=== PATIENT | male | born 1950 | race Caucasian/White ===

== ENCOUNTER 2019-10-25 14:30 | Outpatient (RCR) | payer MEDICARE, OTHER, SELFPAY ==
--- NOTE | 2019-09-14 16:00 | PT.OIE ---
Current Diagnoses Other specified urinary incontinence (09/14/19) Personal history of malignant neoplasm of prostate (09/14/19) Visit Care Team Role Provider Type Gamaliel Trevino Attending Provider Non-Staff Primary Care Provider Specialty: Family Practice Address: [address] [place] [address], [address], [place], [place], [id number] Email: Physical Therapy Initial Evaluation PT-OP-A Visit Information Start: 09/14/19 07:24 Freq: Status: Active Protocol: Document 09/14/19 09:45 AMB (Rec: 09/15/19 12:58 AMB [email or web address]) Out-Patient Physical Therapy Visit Information Visit Information Visit Type Initial Evaluation Visit Start Time 09:45 Visit Stop Time 10:30 Total Visit Minutes 45 Visit Number 1 PT-OP-B Current Condition Start: 09/14/19 07:24 Freq: Status: Active Protocol: Document 09/14/19 09:45 AMB (Rec: 09/16/19 07:32 AMB [email or web address]) Current Condition History of Current Condition Onset Date 1 year ago Current Complaints incontinence s/p prostate surgery History of Current Condition Abhi had prostate surgery a year ago in [place]. Since that time he feels that his continence improved slightly but then plateaued. He has the most issue with standing. He feels like the urine just streams out. He can be continent when lying down, but in standing even if he is doing a Kegel, he goes through 6-7 diapers a day. He did not have any radiation or chemotherapy. Treatment Goals Patient/Caregiver Goals Reduce incontinence, so no longer using continence pads Prior Functional Status Baseline Function- ADL's Independent Baseline Function- Mobility Independent Current Functional Impairments (Reported) Functional Limitations- ADL's Wears 6-7 pads per day Personal Factors Other Personal Factors That May Effect none Therapy/Recovery PT-OP-C Subjective Start: 09/14/19 07:24 Freq: Status: Active Protocol: Document 09/14/19 09:45 AMB (Rec: 09/19/19 11:16 AMB [email or web address]) Patient Questionnaires Pelvic Pain and Urgency/Frequency Patient Symptom Scale Pelvic Pain Score 14 OP-PT Pain Assessment Comments Pain Comments Pt denies pain PT-OP-I Pelvic Floor Start: 09/14/19 07:24 Freq: Status: Active Protocol: Document 09/14/19 09:45 AMB (Rec: 09/19/19 11:16 AMB [email or web address]) Pelvic Floor Assessment Urine Pelvic Floor Surgery Yes: robotic prostate surgery, incision at umbilicus Urinary Symptoms Urge Sensation Leakage Size Large Leakage Cause Exercise Other Leakage Causes standing, walking Leaks Per Day constant Voiding Frequency every 30 minutes to hour Nocturia 3-4 Pads Used In 24 Hours 7 Urine Pad Type Depends Bowel Bowel Surgery No Contraction Ability Voluntary Contraction Weak Voluntary Relaxation Moderate Manual Muscle Testing Left 3 Manual Muscle Testing Right 3 Manual Muscle Testing Anterior 3 Manual Muscle Testing Posterior 3 Muscle Endurance (Seconds) 5 Number of Quick Contractions In 10 5 Seconds Comments Pelvic Floor Comments Manual muscle testing rectally . Good squeeze but poor lift. PT-OP-T Assessment and Plan Start: 09/14/19 07:24 Freq: Status: Active Protocol: Document 09/14/19 09:45 AMB (Rec: 09/19/19 11:16 AMB [email or web address]) Physical Therapy Assessment Rehab Potential Rehabilitation Potential Fair Evaluation Complexity Number of Personal Factors/Comorbidities 0 Number of Body Systems Impaired 1-2 Clinical Presentation at Evaluation Stable Impairments Impairments Functional Activities,Strength Goals Two Impairment pelvic floor strength Short Term Goal (STG) Abhi will improve his pelvic floor strength to 4/5. STG Duration 4 weeks Correction Goal (LTG) Abhi will stand and perform a Kegel for 10 seconds. LTG Duration 8 weeks One Impairment Continence Short Term Goal (STG) Abhi will stand for 3 minutes without leaking. STG Duration 4 weeks Correction Goal (LTG) Abhi will move from sit to stand without leaking. LTG Duration 8 weeks Assessment Summary Assessment Abhi attends PT 1 year s/p prostate surgery with a reported plateau in continence . He feels there is constant leakage when standing or in an upright position, not just when he exerts himself. This is challenging, in that he does have more than just stress urinary incontinence, and he is also experiencing urinary frequency and urgency. He denies any pain, and was able to perform a Kegel during testing. He will benefit from PT to further instruct him in behavioral modification as well as pelvic floor strengthening, to help him reduce his incontinence. Physical Therapy Plan Frequency and Duration Frequency of Treatment 1x/Week Duration of Treatment 8 weeks Plan of Care Start Date 09/14/19 Plan of Care End Date 11/09/19 Therapeutic Interventions Therapeutic Interventions Home Exercise Program,Manual Therapy,Neuromuscular Re- education,Self-Care/Home Management,Therapeutic Activities,Therapeutic Exercises Modalities Biofeedback,Electric Stimulation Next Visit Focus/Plan Next Note Type Treatment Note Next Visit Plan begin with sEMG, behavioral training for urgency/ frequency reduction
--- NOTE | 2019-09-20 14:57 | PT.OTN ---
Current Diagnoses Other specified urinary incontinence (09/20/19) Personal history of malignant neoplasm of prostate (09/20/19) Physical Therapy Treatment Note PT-OP-A Visit Information Start: 09/14/19 07:24 Freq: Status: Active Protocol: Document 09/20/19 13:45 AMB (Rec: 09/20/19 14:57 AMB [email or web address]) Out-Patient Physical Therapy Visit Information Visit Information Visit Type Treatment Note Visit Start Time 13:45 Visit Stop Time 14:30 Total Visit Minutes 45 Visit Number 2 PT-OP-B Current Condition Start: 09/14/19 07:24 Freq: Status: Active Protocol: Document 09/14/19 09:45 AMB (Rec: 09/16/19 07:32 AMB [email or web address]) Current Condition History of Current Condition Onset Date 1 year ago Current Complaints incontinence s/p prostate surgery History of Current Condition Abhi had prostate surgery a year ago in [place]. Since that time he feels that his continence improved slightly but then platueaed. He has the most issue with standing. He feels like the urine just streams out. He can be continent when lying down, but in standing even if he is doing a Kegel, he goes through 6-7 diapers a day. He did not have any radiation or chemotherapy. Treatment Goals Patient/Caregiver Goals Reduce incontinence, so no longer using continence pads Prior Functional Status Baseline Function- ADL's Independent Baseline Function- Mobility Independent Current Functional Impairments (Reported) Functional Limitations- ADL's Wears 6-7 pads per day Personal Factors Other Personal Factors That May Effect none Therapy/Recovery PT-OP-C Subjective Start: 09/14/19 07:24 Freq: Status: Active Protocol: Document 09/20/19 13:45 AMB (Rec: 09/20/19 14:57 AMB [email or web address]) OP-PT Subjective Patient Comments Patient Comments Abhi is feeling about the same. PT-OP-I Pelvic Floor Start: 09/14/19 07:24 Freq: Status: Active Protocol: Document 09/14/19 09:45 AMB (Rec: 09/19/19 11:16 AMB [email or web address]) Pelvic Floor Assessment Urine Pelvic Floor Surgery Yes: robotic prostate surgery, incision at umbilicus Urinary Symptoms Urge Sensation Leakage Size Large Leakage Cause Exercise Other Leakage Causes standing, walking Leaks Per Day constant Voiding Frequency every 30 minutes to hour Nocturia 3-4 Pads Used In 24 Hours 7 Urine Pad Type Depends Bowel Bowel Surgery No Contraction Ability Voluntary Contraction Weak Voluntary Relaxation Moderate Manual Muscle Testing Left 3 Manual Muscle Testing Right 3 Manual Muscle Testing Anterior 3 Manual Muscle Testing Posterior 3 Muscle Endurance (Seconds) 5 Number of Quick Contractions In 10 5 Seconds Comments Pelvic Floor Comments Manual muscle testing rectally . Good squeeze but poor lift. PT-OP-Q Treatments Start: 09/14/19 07:24 Freq: Status: Active Protocol: Document 09/20/19 13:45 AMB (Rec: 09/20/19 14:57 AMB [email or web address]) Therapeutic Exercises Sitting Exercises 1 Sitting Exercise Name roll in roll out Resistance #3 band Comments 10 ea, 5 hold Standing Exercises 2 Standing Exercise Name standing 5 holds, varied foot position 1 Standing Exercise Name mini squat/ lunge Comments with pelvic floor contraction Neuro Re-Education Treatment Other Activities 1 Details sEMG Comments quick flicks and long holds in sidelying PT-OP-T Assessment and Plan Start: 09/14/19 07:24 Freq: Status: Active Protocol: Document 09/20/19 13:45 AMB (Rec: 09/20/19 14:57 AMB [email or web address]) Physical Therapy Assessment Assessment Summary Assessment sEMG maximum of 42, possibly using gluteals, but good awareness of not using abs. Did well with standing pelvic floor progression. Physical Therapy Plan Next Visit Focus/Plan Next Note Type Treatment Note Next Visit Plan begin with sEMG, behavioral training for urgency/ frequency reduction
--- NOTE | 2019-09-28 15:56 | PT.OTN ---
Current Diagnoses Other specified urinary incontinence (09/28/19) Personal history of malignant neoplasm of prostate (09/28/19) Physical Therapy Treatment Note PT-OP-A Visit Information Start: 09/14/19 07:24 Freq: Status: Active Protocol: Document 09/28/19 14:30 AMB (Rec: 09/28/19 15:56 AMB [email or web address]) Out-Patient Physical Therapy Visit Information Visit Information Visit Type Treatment Note Visit Start Time 14:30 Visit Stop Time 15:15 Total Visit Minutes 45 Visit Number 3 PT-OP-B Current Condition Start: 09/14/19 07:24 Freq: Status: Active Protocol: Document 09/14/19 09:45 AMB (Rec: 09/16/19 07:32 AMB [email or web address]) Current Condition History of Current Condition Onset Date 1 year ago Current Complaints incontinence s/p prostate surgery History of Current Condition Abhi had prostate surgery a year ago in [place]. Since that time he feels that his continence improved slightly but then platueaed. He has the most issue with standing. He feels like the urine just streams out. He can be continent when lying down, but in standing even if he is doing a Kegel, he goes through 6-7 diapers a day. He did not have any radiation or chemotherapy. Treatment Goals Patient/Caregiver Goals Reduce incontinence, so no longer using continence pads Prior Functional Status Baseline Function- ADL's Independent Baseline Function- Mobility Independent Current Functional Impairments (Reported) Functional Limitations- ADL's Wears 6-7 pads per day Personal Factors Other Personal Factors That May Effect none Therapy/Recovery PT-OP-C Subjective Start: 09/14/19 07:24 Freq: Status: Active Protocol: Document 09/28/19 14:30 AMB (Rec: 09/28/19 15:56 AMB [email or web address]) OP-PT Subjective Patient Comments Patient Comments Abhi did his exercises every day except for one day this week. PT-OP-I Pelvic Floor Start: 09/14/19 07:24 Freq: Status: Active Protocol: Document 09/14/19 09:45 AMB (Rec: 09/19/19 11:16 AMB [email or web address]) Pelvic Floor Assessment Urine Pelvic Floor Surgery Yes: robotic prostate surgery, incision at umbilicus Urinary Symptoms Urge Sensation Leakage Size Large Leakage Cause Exercise Other Leakage Causes standing, walking Leaks Per Day constant Voiding Frequency every 30 minutes to hour Nocturia 3-4 Pads Used In 24 Hours 7 Urine Pad Type Depends Bowel Bowel Surgery No Contraction Ability Voluntary Contraction Weak Voluntary Relaxation Moderate Manual Muscle Testing Left 3 Manual Muscle Testing Right 3 Manual Muscle Testing Anterior 3 Manual Muscle Testing Posterior 3 Muscle Endurance (Seconds) 5 Number of Quick Contractions In 10 5 Seconds Comments Pelvic Floor Comments Manual muscle testing rectally . Good squeeze but poor lift. PT-OP-Q Treatments Start: 09/14/19 07:24 Freq: Status: Active Protocol: Document 09/28/19 14:30 AMB (Rec: 09/28/19 15:56 AMB [email or web address]) Therapeutic Exercises Sitting Exercises 1 Sitting Exercise Name roll in roll out Resistance #3 band Comments 10 ea, 5 hold Standing Exercises 2 Standing Exercise Name standing 10 holds, varied foot position Comments eccentric lowering 1 Standing Exercise Name mini squat/ lunge Comments with pelvic floor contraction PT-OP-T Assessment and Plan Start: 09/14/19 07:24 Freq: Status: Active Protocol: Document 09/28/19 14:30 AMB (Rec: 09/28/19 15:56 AMB [email or web address]) Physical Therapy Assessment Assessment Summary Assessment Pelvic floor contraction with squat is still difficult but did feel leak when relaxing. Encouraged in eccentric lowering with relaxation in standing. Physical Therapy Plan Next Visit Focus/Plan Next Note Type Treatment Note Next Visit Plan follow up on ejaculating urine
--- NOTE | 2019-10-08 12:30 | PT.OTN ---
Current Diagnoses Other specified urinary incontinence (10/08/19) Personal history of malignant neoplasm of prostate (10/08/19) Physical Therapy Treatment Note PT-OP-A Visit Information Start: 09/14/19 07:24 Freq: Status: Active Protocol: Document 10/08/19 10:30 AMB (Rec: 10/08/19 12:01 AMB [email or web address]) Out-Patient Physical Therapy Visit Information Visit Information Visit Type Treatment Note Visit Start Time 10:30 Visit Stop Time 11:15 Total Visit Minutes 45 Visit Number 4 PT-OP-B Current Condition Start: 09/14/19 07:24 Freq: Status: Active Protocol: Document 09/14/19 09:45 AMB (Rec: 09/16/19 07:32 AMB [email or web address]) Current Condition History of Current Condition Onset Date 1 year ago Current Complaints incontinence s/p prostate surgery History of Current Condition Abhi had prostate surgery a year ago in [place]. Since that time he feels that his continence improved slightly but then platueaed. He has the most issue with standing. He feels like the urine just streams out. He can be continent when lying down, but in standing even if he is doing a Kegel, he goes through 6-7 diapers a day. He did not have any radiation or chemotherapy. Treatment Goals Patient/Caregiver Goals Reduce incontinence, so no longer using continence pads Prior Functional Status Baseline Function- ADL's Independent Baseline Function- Mobility Independent Current Functional Impairments (Reported) Functional Limitations- ADL's Wears 6-7 pads per day Personal Factors Other Personal Factors That May Effect none Therapy/Recovery PT-OP-C Subjective Start: 09/14/19 07:24 Freq: Status: Active Protocol: Document 10/08/19 10:30 AMB (Rec: 10/08/19 12:01 AMB [email or web address]) OP-PT Subjective Patient Comments Patient Comments Feels that sometimes there is more urine that comes out with orgasm than a condom would hold PT-OP-I Pelvic Floor Start: 09/14/19 07:24 Freq: Status: Active Protocol: Document 09/14/19 09:45 AMB (Rec: 09/19/19 11:16 AMB [email or web address]) Pelvic Floor Assessment Urine Pelvic Floor Surgery Yes: robotic prostate surgery, incision at umbilicus Urinary Symptoms Urge Sensation Leakage Size Large Leakage Cause Exercise Other Leakage Causes standing, walking Leaks Per Day constant Voiding Frequency every 30 minutes to hour Nocturia 3-4 Pads Used In 24 Hours 7 Urine Pad Type Depends Bowel Bowel Surgery No Contraction Ability Voluntary Contraction Weak Voluntary Relaxation Moderate Manual Muscle Testing Left 3 Manual Muscle Testing Right 3 Manual Muscle Testing Anterior 3 Manual Muscle Testing Posterior 3 Muscle Endurance (Seconds) 5 Number of Quick Contractions In 10 5 Seconds Comments Pelvic Floor Comments Manual muscle testing rectally . Good squeeze but poor lift. PT-OP-Q Treatments Start: 09/14/19 07:24 Freq: Status: Active Protocol: Document 10/08/19 10:30 AMB (Rec: 10/08/19 12:30 AMB [email or web address]) Therapeutic Exercises Sitting Exercises 2 Sitting Exercise Name quick flicks to reduce urgency Comments bladder training, bladder diary ariel, over time increasing time between void 1 Sitting Exercise Name roll in roll out Resistance #3 band Comments 10 ea, 5 hold Standing Exercises 1 Standing Exercise Name mini squat/ lunge Comments with pelvic floor contraction PT-OP-T Assessment and Plan Start: 09/14/19 07:24 Freq: Status: Active Protocol: Document 10/08/19 10:30 AMB (Rec: 10/08/19 12:01 AMB [email or web address]) Physical Therapy Assessment Assessment Summary Assessment Abhi worked a lot today and frequency and discussion of urge suppression. This will be difficult as he has gotten up to go to the bathroom multiple times per night for about 15 years now. Physical Therapy Plan Next Visit Focus/Plan Next Note Type Treatment Note Next Visit Plan Follow up on bladder diary, decreasing both night time and daytime frequency. Consider NMES.
--- NOTE | 2019-10-11 15:47 | PT.OTN ---
Current Diagnoses Other specified urinary incontinence (10/11/19) Personal history of malignant neoplasm of prostate (10/11/19) Physical Therapy Treatment Note PT-OP-A Visit Information Start: 09/14/19 07:24 Freq: Status: Active Protocol: Document 10/11/19 14:30 AMB (Rec: 10/11/19 15:46 AMB [email or web address]) Out-Patient Physical Therapy Visit Information Visit Information Visit Type Treatment Note Visit Start Time 14:30 Visit Stop Time 15:00 Total Visit Minutes 45 Visit Number 5 PT-OP-B Current Condition Start: 09/14/19 07:24 Freq: Status: Active Protocol: Document 09/14/19 09:45 AMB (Rec: 09/16/19 07:32 AMB [email or web address]) Current Condition History of Current Condition Onset Date 1 year ago Current Complaints incontinence s/p prostate surgery History of Current Condition Abhi had prostate surgery a year ago in [place]. Since that time he feels that his continence improved slightly but then platueaed. He has the most issue with standing. He feels like the urine just streams out. He can be continent when lying down, but in standing even if he is doing a Kegel, he goes through 6-7 diapers a day. He did not have any radiation or chemotherapy. Treatment Goals Patient/Caregiver Goals Reduce incontinence, so no longer using continence pads Prior Functional Status Baseline Function- ADL's Independent Baseline Function- Mobility Independent Current Functional Impairments (Reported) Functional Limitations- ADL's Wears 6-7 pads per day Personal Factors Other Personal Factors That May Effect none Therapy/Recovery PT-OP-C Subjective Start: 09/14/19 07:24 Freq: Status: Active Protocol: Document 10/11/19 14:30 AMB (Rec: 10/11/19 15:46 AMB [email or web address]) OP-PT Subjective Patient Comments Patient Comments Pt has been able to lengthen the amount of time between voids at night by an hour but it has been difficult. PT-OP-I Pelvic Floor Start: 09/14/19 07:24 Freq: Status: Active Protocol: Document 09/14/19 09:45 AMB (Rec: 09/19/19 11:16 AMB [email or web address]) Pelvic Floor Assessment Urine Pelvic Floor Surgery Yes: robotic prostate surgery, incision at umbilicus Urinary Symptoms Urge Sensation Leakage Size Large Leakage Cause Exercise Other Leakage Causes standing, walking Leaks Per Day constant Voiding Frequency every 30 minutes to hour Nocturia 3-4 Pads Used In 24 Hours 7 Urine Pad Type Depends Bowel Bowel Surgery No Contraction Ability Voluntary Contraction Weak Voluntary Relaxation Moderate Manual Muscle Testing Left 3 Manual Muscle Testing Right 3 Manual Muscle Testing Anterior 3 Manual Muscle Testing Posterior 3 Muscle Endurance (Seconds) 5 Number of Quick Contractions In 10 5 Seconds Comments Pelvic Floor Comments Manual muscle testing rectally . Good squeeze but poor lift. PT-OP-Q Treatments Start: 09/14/19 07:24 Freq: Status: Active Protocol: Document 10/11/19 14:30 AMB (Rec: 10/11/19 15:46 AMB [email or web address]) Neuro Re-Education Treatment Other Activities 2 Details long holds with NMES 1 Details sEMG Comments quick flicks and long holds in sidelying- max 45 when not compensating PT-OP-T Assessment and Plan Start: 09/14/19 07:24 Freq: Status: Active Protocol: Document 10/11/19 14:30 AMB (Rec: 10/11/19 15:46 AMB [email or web address]) Physical Therapy Assessment Assessment Summary Assessment NMES may or may not have been helpful. Abhi continued to need verbal cues to avoid over using gluteals and abdominals with the sEMG. Physical Therapy Plan Next Visit Focus/Plan Next Note Type Treatment Note Next Visit Plan Follow up on bladder diary, decreasing both night time and daytime frequency.
--- NOTE | 2019-10-25 16:00 | PT.OTN ---
Current Diagnoses Other specified urinary incontinence (10/25/19) Personal history of malignant neoplasm of prostate (10/25/19) Physical Therapy Treatment Note PT-OP-A Visit Information Start: 09/14/19 07:24 Freq: Status: Active Protocol: Document 10/25/19 14:30 AMB (Rec: 10/26/19 10:55 AMB [email or web address]) Out-Patient Physical Therapy Visit Information Visit Information Visit Type Treatment Note Visit Start Time 14:30 Visit Stop Time 15:00 Total Visit Minutes 30 Visit Number 6 PT-OP-B Current Condition Start: 09/14/19 07:24 Freq: Status: Active Protocol: Document 09/14/19 09:45 AMB (Rec: 09/16/19 07:32 AMB [email or web address]) Current Condition History of Current Condition Onset Date 1 year ago Current Complaints incontinence s/p prostate surgery History of Current Condition Abhi had prostate surgery a year ago in [place]. Since that time he feels that his continence improved slightly but then platueaed. He has the most issue with standing. He feels like the urine just streams out. He can be continent when lying down, but in standing even if he is doing a Kegel, he goes through 6-7 diapers a day. He did not have any radiation or chemotherapy. Treatment Goals Patient/Caregiver Goals Reduce incontinence, so no longer using continence pads Prior Functional Status Baseline Function- ADL's Independent Baseline Function- Mobility Independent Current Functional Impairments (Reported) Functional Limitations- ADL's Wears 6-7 pads per day Personal Factors Other Personal Factors That May Effect none Therapy/Recovery PT-OP-C Subjective Start: 09/14/19 07:24 Freq: Status: Active Protocol: Document 10/25/19 14:30 AMB (Rec: 10/26/19 10:55 AMB [email or web address]) OP-PT Subjective Patient Comments Patient Comments Pt is hoping to continue with PT, but due to his schedule wants to continue in December. He is continuing to have the issue of leaking after relaxing the pelvic floor in standing. PT-OP-I Pelvic Floor Start: 09/14/19 07:24 Freq: Status: Active Protocol: Document 09/14/19 09:45 AMB (Rec: 09/19/19 11:16 AMB [email or web address]) Pelvic Floor Assessment Urine Pelvic Floor Surgery Yes: robotic prostate surgery, incision at umbilicus Urinary Symptoms Urge Sensation Leakage Size Large Leakage Cause Exercise Other Leakage Causes standing, walking Leaks Per Day constant Voiding Frequency every 30 minutes to hour Nocturia 3-4 Pads Used In 24 Hours 7 Urine Pad Type Depends Bowel Bowel Surgery No Contraction Ability Voluntary Contraction Weak Voluntary Relaxation Moderate Manual Muscle Testing Left 3 Manual Muscle Testing Right 3 Manual Muscle Testing Anterior 3 Manual Muscle Testing Posterior 3 Muscle Endurance (Seconds) 5 Number of Quick Contractions In 10 5 Seconds Comments Pelvic Floor Comments Manual muscle testing rectally . Good squeeze but poor lift. PT-OP-Q Treatments Start: 09/14/19 07:24 Freq: Status: Active Protocol: Document 10/25/19 14:30 AMB (Rec: 10/26/19 10:55 AMB [email or web address]) Therapeutic Exercises Standing Exercises 2 Standing Exercise Name pelvic floor contraction Reps/Minutes 10 second hold Comments with gentle slow relaxation 1 Standing Exercise Name mini squat/ lunge Comments with pelvic floor contraction PT-OP-T Assessment and Plan Start: 09/14/19 07:24 Freq: Status: Active Protocol: Document 10/25/19 14:30 AMB (Rec: 10/26/19 10:55 AMB [email or web address]) Physical Therapy Assessment Assessment Summary Assessment Pt has lost his bladder diary, and felt that he is drinking about double the 64oz recommendation and that is likely contributing to his frequency. Physical Therapy Plan Next Visit Focus/Plan Next Note Type Progress Note Next Visit Plan Reassess with NMES at next visit, assess pt ability to contract pelvic floor in standing.
--- NOTE | 2020-02-03 08:27 | PT.OPDS ---
Current Diagnoses Other specified urinary incontinence (10/25/19) Personal history of malignant neoplasm of prostate (10/25/19) Visit Care Team Role Provider Type Gamaliel Trevino Attending Provider Non-Staff Primary Care Provider [facility] Address: [address] [place] [address], [address], [place], [place], [id number] Email: Visit Number Visit Number 6 Discharge Summary PT-OP-B Current Condition Start: 09/14/19 07:24 Freq: Status: Active Protocol: Document 09/14/19 09:45 AMB (Rec: 09/16/19 07:32 AMB [email or web address]) Current Condition History of Current Condition Onset Date 1 year ago Current Complaints incontinence s/p prostate surgery History of Current Condition Abhi had prostate surgery a year ago in [place]. Since that time he feels that his continence improved slightly but then platueaed. He has the most issue with standing. He feels like the urine just streams out. He can be continent when lying down, but in standing even if he is doing a Kegel, he goes through 6-7 diapers a day. He did not have any radiation or chemotherapy. Treatment Goals Patient/Caregiver Goals Reduce incontinence, so no longer using continence pads Prior Functional Status Baseline Function- ADL's Independent Baseline Function- Mobility Independent Current Functional Impairments (Reported) Functional Limitations- ADL's Wears 6-7 pads per day Personal Factors Other Personal Factors That May Effect none Therapy/Recovery PT-OP-C Subjective Start: 09/14/19 07:24 Freq: Status: Active Protocol: Document 10/25/19 14:30 AMB (Rec: 10/26/19 10:55 AMB [email or web address]) OP-PT Subjective Patient Comments Patient Comments Pt is hoping to continue with PT, but due to his schedule wants to continue in December. He is continuing to have the issue of leaking after relaxing the pelvic floor in standing. PT-OP-I Pelvic Floor Start: 09/14/19 07:24 Freq: Status: Active Protocol: Document 09/14/19 09:45 AMB (Rec: 09/19/19 11:16 AMB [email or web address]) Pelvic Floor Assessment Urine Pelvic Floor Surgery Yes: robotic prostate surgery, incision at umbilicus Urinary Symptoms Urge Sensation Leakage Size Large Leakage Cause Exercise Other Leakage Causes standing, walking Leaks Per Day constant Voiding Frequency every 30 minutes to hour Nocturia 3-4 Pads Used In 24 Hours 7 Urine Pad Type Depends Bowel Bowel Surgery No Contraction Ability Voluntary Contraction Weak Voluntary Relaxation Moderate Manual Muscle Testing Left 3 Manual Muscle Testing Right 3 Manual Muscle Testing Anterior 3 Manual Muscle Testing Posterior 3 Muscle Endurance (Seconds) 5 Number of Quick Contractions In 10 5 Seconds Comments Pelvic Floor Comments Manual muscle testing rectally . Good squeeze but poor lift. PT-OP-T Assessment and Plan Start: 09/14/19 07:24 Freq: Status: Active Protocol: Document 02/03/20 08:03 AMB (Rec: 02/03/20 08:27 [facility] [id number]) Physical Therapy Assessment Goals Two Impairment pelvic floor strength Short Term Goal (STG) Abhi will improve his pelvic floor strength to 4/5. STG Duration 4 weeks Table Tender Sludge Goal (LTG) Abhi will stand and perform a Kegel for 10 seconds. LTG Duration 8 weeks One Impairment Continence Short Term Goal (STG) Abhi will stand for 3 minutes without leaking. STG Duration 4 weeks [facility] Goal (LTG) Abhi will move from sit to stand without leaking. LTG Duration 8 weeks Assessment Summary Assessment Abhi attended 6 visits of physical therapy. He stated that he wanted to continue, but later decided that he was too busy to continue, therefore he is discharged from PT. At the time of his last visit he was still dealing with frequency and urgency, but had been instructed in pelvic floor strengthening.
== END 2020-02-04 08:22 ==
LOC: PHYS 14:30
PROVIDERS: PCP Family Medicine; Visit Provider Family Medicine
DX: N39.498 Other specified urinary incontinence (principal); Z85.46 Personal history of malignant neoplasm of prostate
CPT/HCPCS: 97110; 97112; 97162